=== PATIENT | male | born 2000 | race Caucasian/White ===

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

== ENCOUNTER 2024-05-26 19:03 | Emergency (ER) | payer MEDICAID, SELFPAY ==
[2024-05-26 19:37] VITALS: BP 127/83; PULSE 89; RESP 18; TEMP 36.6; O2SAT 100; BMI 20.7
--- NOTE | 2024-05-26 19:41 | XR_ITS ---
PROCEDURE INFORMATION: Exam: XR Left Wrist Exam date and time: 05/26/2024 7:44 PM Age: 23 years old Clinical indication: Injury or trauma; Fall; Blunt trauma (contusions or hematomas); Wrist; Left; Additional info: Left wrist injury TECHNIQUE: Imaging protocol: Radiologic exam of the left wrist. Views: 3 or more views. COMPARISON: No relevant prior studies available. FINDINGS: Bones/joints: A possible nondisplaced avulsion fracture of the distal lateral aspect of the scaphoid. No other fracture seen. Soft tissues: Normal. IMPRESSION: Possible scaphoid avulsion fracture.
--- NOTE | 2024-05-26 19:41 | XR_ITS ---
PROCEDURE INFORMATION: Exam: XR Left Forearm Exam date and time: 05/26/2024 7:45 PM Age: 23 years old Clinical indication: Injury or trauma; Fall; Blunt trauma (contusions or hematomas); Wrist; Left; Additional info: Left wrist injury TECHNIQUE: Imaging protocol: Radiologic exam of the left forearm. Views: 2 views. COMPARISON: CR Wrist L 05/26/2024 7:44 PM FINDINGS: Bones/joints: Possible nondisplaced avulsion fracture of the distal lateral aspect of the scaphoid redemonstrated. No other fracture seen. Soft tissues: Normal. IMPRESSION: Possible scaphoid fracture.
--- NOTE | 2024-05-26 21:28 | ED_ITS ---
<Statement entered by Zelda Hernandez DO - 05/27/24 00:53> I was consulted by the JENNIFER, and we discussed the complexity of the problems being addressed. I approved the treatment and management plan for this patient's care in the emergency department, thus performing a substantive portion of the medical decision making. Zelda Hernandez DO Discharge Plan Disposition Patient Disposition: Home, Self-Care Condition: Good Prescriptions Prescriptions: No Action levothyroxine [Levo-T] 150 mcg tablet 150 mcg PO DAILY Qty: 90 0RF Referrals Follow up/Referrals: Ren Hester DO [Staff Physician] - See instructions (Left scaphoid avulsion) Provider,Referral, [Primary Care Provider] - See instructions Activity Restrictions/Add. Instructions Additional Instructions/Restrictions: Please wear your splint until you are seen by Ortho. I recommend rest ice elevation along with Tylenol alternating with Motrin. If you have any worsening signs or symptoms follow-up with your PCP or return to the ER as needed. Clinical Impressions Clinical Impression: Fracture of scaphoid bone of left wrist Qualifiers: Encounter type: initial encounter Scaphoid bone location: distal pole Fracture type: closed Fracture alignment: nondisplaced Qualified Code(s): S62.015A - Nondisplaced fracture of distal pole of navicular [scaphoid] bone of left wrist, initial encounter for closed fracture Print Language Print Language: Tristanian Discharge ED Provider: Zelda Hernandez General Adult HPI General Chief complaint: Extremity Injury, Upper Stated complaint: AO 4-17 @1830 left wrist pain Time Seen by Provider: 05/26/24 21:28 Mode of Arrival: Ambulatory Source of Information: Patient Description of Symptoms (Recalled from ER Triage Doc. by RN): Pt presents for evaluation of left wrist injury after falling off of a skateboard at about an hour [employer]. Pt has strong, pulse, brisk cap refill, sensation intact History of Present Illness HPI narrative: Patient presents for evaluation of left wrist injury. Patient was skateboarding and fell off catching himself with his left wrist. However he felt a sharp pain when he did. He has no loss of motor or sensory but it is become more painful and swollen along with ecchymosis. He denies any other injury no headache no neck pain no knee pain moves all 4 extremities otherwise. Related Data Previous Rx's ?Medication ?Instructions ?Recorded levothyroxine 150 mcg tablet 150 mcg PO DAILY #90 tabs 06/24/18 (Levo-T) Allergies Allergy/AdvReac Type Severity Reaction Status Date / Time No Known Allergies Allergy Verified 05/26/24 19:41 [facility] Disclaimer: The information contained in this section may have been updated after the patient was seen, as this information can be updated by other users. Social History Smoking Status: Current every day smoker tobacco type: e-cigarettes alcohol intake: never substance use type: denies use and marijuana (about 1-2 times per week) current occupational status: student Travel in the last 8 weeks: None number of children: 0 Other Medical History Have you received the Pneumonia Vaccine: No ROS Obtained: Yes Systems reviewed as appropriate & no additional complaints except as documented Physical Exam General General appearance: alert and in no apparent distress Respiratory Respiratory exam: Present normal lung sounds bilaterally Cardiovascular Cardiovascular exam: Present regular rate Neurological Exam Neurological exam: Present alert and oriented X3 Medical Decision Making Medical Records Medical records reviewed: Yes I reviewed the patient's medical records. Screening: Per USPSTF and CDC recommendations, given the prevalence of disease in our region, it is our hospital?s policy to screen for HIV and viral Hepatitis for all patients aged 18 and over and those with ongoing risk factors. Nayan Inquiry Pt receiving controlled substance: No Vital Signs: 05/26/24 19:37 05/26/24 21:44 05/26/24 22:04 Temperature 98 F 98.0 F Temperature Source Oral Oral Pulse Rate 69 69 Pulse Rate [Right] 89 Respiratory Rate 18 18 18 Blood Pressure 138/82 138/82 Blood Pressure [Right Arm] 127/83 Blood Pressure Mean [Right Arm] 97 Blood Pressure Source Automatic Cuff Automatic Cuff Blood Pressure Source [Right Arm] Automatic Cuff Blood Pressure Position Sitting Sitting Blood Pressure Position [Right Arm] Sitting 02 Sat by Pulse Oximetry 100 99 Oxygen Delivery Method Room Air Room Air Room Air Orders (Tests/Meds): ED MEDICATIONS Discontinued Medications Generic Name Dose Route Start Last Admin Trade Name Freq PRN Reason Stop Dose Admin Acetaminophen 1,000 mg 05/26/24 21:41 05/26/24 21:53 Acetaminophen 500mg Tab PO 05/26/24 21:42 Not Given ONCE ONE Ibuprofen 800 mg 05/26/24 21:41 05/26/24 21:53 Ibuprofen 400 Mg Tablet PO 05/26/24 21:42 Not Given ONCE ONE ORDERS Category Date Time Status Wrist XR left minimum 3 views [XR wrist LT min 3V] Stat Exams 05/26/24 19:41 Completed XR forearm LT 2V Stat Exams 05/26/24 19:41 Completed Medical Decision Narrative: In summary patient is a 43-year-old male who presents to the emergency department for evaluation of left wrist injury. Patient is hemodynamically stable upon arrival, afebrile. Physical exam is remarkable for ecchymosis and swelling primarily on the volar aspect of the wrist on the radial side without palpable bony deformity. It is however tender to palpation. Patient does have full range of motion and is neurovascular intact distally.. Differential diagnosis includes sprain versus fracture. Initial workup will be conducted with a film x-ray. Initial interventions include Tylenol and ibuprofen. Initial workup reviewed by me and my informal interpretation does not reveal any obvious fracture prior to radiology read however the formal radiology read suggest that there is a possible avulsion fracture of the scaphoid at the distal lateral aspect. Upon repeat evaluation patient reports modest improvement after Tylenol and ibuprofen. Given this and over abundance of caution we will place patient into a thumb spica and referred to orthopedics for ongoing evaluation and care. Patient recommended for rest ice compression elevation Tylenol Motrin for symptoms. Critical Care Critical Care Time Critical Care Time: No
[2024-05-26 21:44] VITALS: BP 138/82; PULSE 69; RESP 18; O2SAT 99
[2024-05-26 22:04] VITALS: BP 138/82; PULSE 69; RESP 18; TEMP 36.7; O2SAT 99
== END 2024-05-26 22:05 | disposition home or self-care (01) ==
PROVIDERS: Emergency Provider Emergency Medicine
DX: S62.015A Nondisplaced fracture of distal pole of navicular [scaphoid] bone of left wrist, initial encounter for closed fracture (principal); V00.131A Fall from skateboard, initial encounter
CPT/HCPCS: 73090; 73110; 99283